=== PATIENT | male | born 1960 | race Caucasian/White ===

== ENCOUNTER 2024-08-02 12:00 | Outpatient (CLI) | payer BC | END 2024-08-02 12:01 | disposition home or self-care (01) | LOC: CSHLAB 12:00 | PROVIDERS: ATTEND Surgery | DX: Z01.818 Encounter for other preprocedural examination (principal); K40.20 Bilateral inguinal hernia, without obstruction or gangrene, not specified as recurrent | CPT/HCPCS: 93005; 93010 ==

== ENCOUNTER 2024-08-04 05:55 | Day surgery (SDC) | payer BC ==
[2024-08-02 12:21] VITALS: BMI 21.8
[2024-08-04] MEDS ORDERED: CEFAZOLIN 2 GM VIAL ONE (06:13)
[2024-08-04] MEDS ORDERED: Bupivacaine HCl 0.5%/Epinephrine 1:200,000/PF 30 ml Vial ONE (06:13)
[2024-08-04] MEDS ORDERED: Acetaminophen 500 MG TAB ONE (06:46)
[2024-08-04] MEDS ORDERED: Ketorolac Tromethamine 30 MG (1 mL) VIAL ONE (06:48)
[2024-08-04] MEDS ORDERED: Lidocaine 2% PF 5 ML VIAL ONE (06:48)
[2024-08-04] MEDS ORDERED: Lidocaine 4% PF 5 ML AMP ONE (06:48)
[2024-08-04] MEDS ORDERED: Dexamethasone 4 mg/ml Vial ONE ×2 (06:49→07:25)
[2024-08-04] MEDS ORDERED: Ondansetron PF 4 MG/2 ML Vial ONE (06:49)
[2024-08-04] MEDS ORDERED: Rocuronium Bromide 10 MG/ML (10ML VIAL) ONE (06:49)
[2024-08-04] MEDS ORDERED: PROPOFOL 20 ML ONE (06:50)
[2024-08-04] MEDS ORDERED: fentaNYL 50 mcg/mL 1 mL Vial ONE ×3 (06:50→07:49)
[2024-08-04] MEDS ORDERED: Sevoflurane 250 ML INH ANEST BOTTLE ONE (06:53)
[2024-08-04] MEDS ORDERED: ePHEDrine Sulfate 50 MG/10 ML VIAL ONE (07:23)
[2024-08-04] MEDS ORDERED: Glycopyrrolate 0.2 MG/ML 5 ML SYRINGE ONE (07:35)
[2024-08-04] MEDS ORDERED: SUGAMMADEX SODIUM 200 MG/2 ML VIAL ONE (07:59)
== END 2024-08-04 09:35 | disposition home or self-care (01) ==
LOC: CSHSDC 05:55
PROVIDERS: ATTEND Surgery
PROC: 0YUA4JZ Supplement Bilateral Inguinal Region with Synthetic Substitute, Percutaneous Endoscopic Approach (ICD-10-PCS; principal; 2024-08-04)
DX: K40.90 Unilateral inguinal hernia, without obstruction or gangrene, not specified as recurrent (principal)
CPT/HCPCS: C1781; J1100; J1885; J2405; J2704; J3010; S2900